=== PATIENT | female | born 1985 | race Caucasian/White ===

== ENCOUNTER 2025-02-02 13:42 | Observation (INO) | payer OTHER ==
[2025-02-02 14:05] VITALS: BP 100/59; PULSE 63; RESP 18; TEMP 97.9
== END 2025-02-02 18:05 | disposition home or self-care (01) ==
LOC: OB 13:42
PROVIDERS: ADMIT Family Medicine; ATTEND Family Medicine
DX: Z34.83 Encounter for supervision of other normal pregnancy, third trimester (principal); Z3A.31 31 weeks gestation of pregnancy

== ENCOUNTER 2025-03-27 04:53 | Inpatient (IN) | payer OTHER ==
[2025-03-27] MEDS: Lactated Ringers 1,000 ML IV ONE (05:00)
[2025-03-27] MEDS ORDERED: Lactated Ringers 1,000 ML IV SCH (05:00)
[2025-03-27 06:05] LABS: Hematocrit 36.4 % (34.1-44.9); Hemoglobin 12.3 g/dL (11.2-15.7); Mean Corpuscular Hemoglobin 29.5 pg (25.6-32.2); Mean Corpuscular Hgb Concent. 33.8 g/dL (32.2-35.5); Platelet Count 196 x10^3/uL (182-369); Red Blood Count 4.17 x10^6/uL (3.93-5.22); White Blood Count 8.0 x10^3/uL (3.98-10.04)
[2025-03-27] MEDS: Reglan 10 MG/2 ML IV SCH (06:07)
[2025-03-27] MEDS: SOD CITRATE-CITRIC ACID SOLN PO SCH (06:07)
[2025-03-27 06:08] LABS: Glucose, Urine Negative (Negative); Protein,Urine Dip Trace (Negative); RBC 0-2 /HPF (0-5); WBC 0-2 /HPF (0-5)
[2025-03-27] MEDS: Pepcid 20 MG VIAL IV SCH (06:08)
[2025-03-27 06:19] LABS: Amphetamine,Urine NEGATIVE (NEGATIVE); Barbiturate,Urine NEGATIVE (NEGATIVE); Benzodiazepine,Urine NEGATIVE (NEGATIVE); Cocaine,Urine NEGATIVE (NEGATIVE); Methadone,Urine NEGATIVE (NEGATIVE); Opiate,Urine NEGATIVE (NEGATIVE); PCP,Urine NEGATIVE (NEGATIVE); THC,Urine NEGATIVE (NEGATIVE)
[2025-03-27 06:20] LABS: INR 0.84 (0.8-3.0); PROTIME 9.3 SECONDS (9.4-12.5); PTT 26.2 SECONDS (25.1-36.5)
[2025-03-27] MEDS: CLINDAMYCIN-D5W 900 MG/50 ML*** 900 MG/50 ML BAG IV SCH (06:38)
[2025-03-27 06:43] LABS: ABO TYPING AB; RH TYPING POSITIVE
[2025-03-27] MEDS ORDERED: Astramorph-Pf 5 MG/10 ML ONE (06:47)
[2025-03-27] MEDS ORDERED: Pitocin 10 UNITS/ML ONE (06:47)
[2025-03-27] MEDS ORDERED: OFIRMEV 100 ML IV ONE (06:52)
[2025-03-27] MEDS ORDERED: EXPAREL 133 MG/10 ML VIAL IJ ONE (06:53)
[2025-03-27] MEDS ORDERED: Marcaine Mpf 0.5% Vial 30 Ml ONE (06:53)
[2025-03-27] MEDS ORDERED: Ephedrine Sulfate 50 MG/ML ONE (07:27)
[2025-03-27] MEDS ORDERED: PHENYLEPHRINE HCL ONE (07:27)
[2025-03-27] MEDS ORDERED: Zofran 4 MG/2 ML VIAL ONE (07:52)
[2025-03-27] MEDS ORDERED: SUBLIMAZE 100 MCG/2 ML ONE (07:58)
[2025-03-27] MEDS ORDERED: MOTRIN 400 MG PO PRN (10:19)
[2025-03-27] MEDS ORDERED: LANSINOH 40 GM TOP PRN (10:19)
[2025-03-27] MEDS ORDERED: TYLENOL EXTRA STRENGTH 500 MG PO PRN (10:19)
[2025-03-27] MEDS ORDERED: Mylicon 80MG PO PRN ×2 (10:19→13:00)
[2025-03-27] MEDS ORDERED: CLARITIN 10 MG PO PRN (10:26)
[2025-03-27] MEDS ORDERED: BENADRYL 50 MG/ML IV PRN ×2 (10:26→13:00)
[2025-03-27] MEDS ORDERED: Nubain 10 MG/ML IV PRN ×2 (10:26→13:00)
[2025-03-27] MEDS ORDERED: MORPHINE SULFATE 2 MG INJ IV PRN ×2 (10:26→13:00)
[2025-03-27] MEDS ORDERED: DEMEROL 50 MG IV PRN ×2 (10:26→13:00)
[2025-03-27] MEDS ORDERED: Dextrose 5%-Lr IV Solution 1000 ML 1,000 ML IV SCH (10:30)
[2025-03-27] MEDS ORDERED: Narcan 0.4 MG/ML IV PRN ×2 (10:30→13:00)
[2025-03-27] MEDS ORDERED: PERCOCET TABLET 5/325MG PO PRN ×2 (10:30→13:00)
[2025-03-27] MEDS ORDERED: Sodium Chloride 0.9% 10 ML FLUSH Syringe IJ PRN ×2 (10:45→13:00)
[2025-03-27] MEDS ORDERED: HOLD NARCOTIC ANALGESICS AND SEDATIVES X24 HR MC PRN (10:45)
[2025-03-27] MEDS ORDERED: Dextrose 5%-Lr IV Solution 1000 ML 1,000 ML IV ONE (12:45)
[2025-03-27] MEDS ORDERED: CLARITIN 10 MG ONE (12:46)
[2025-03-27] MEDS: CLARITIN 10 MG PO PRN (13:11)
[2025-03-27] MEDS: Dextrose 5%-Lr IV Solution 1000 ML 1,000 ML IV SCH (13:11)
[2025-03-27 15:13] LABS: Glucose, Urine Negative (Negative); Protein,Urine Dip Trace (Negative); RBC 0-2 /HPF (0-5)
[2025-03-27] MEDS: Zofran 4 MG/2 ML VIAL IV PRN (17:36)
[2025-03-27] MEDS: LANSINOH 40 GM TOP PRN (17:36)
[2025-03-27] MEDS: Docusate Sodium 100 MG PO SCH (20:25)
[2025-03-27] MEDS: MOTRIN 400 MG PO PRN (20:31)
[2025-03-27] MEDS ORDERED: Docusate Sodium 100 MG PO SCH (22:00)
[2025-03-28] MEDS: TYLENOL EXTRA STRENGTH 500 MG PO PRN (01:01)
[2025-03-28 05:03] LABS: BASOPHIL % 0.3 % (0.1-1.2); Basophil (Absolute #) 0.03 x10^3/uL (0.01-0.08); Eosinophil (Absolute #) 0.18 x10^3/uL (0.04-0.36); Hematocrit 34.6 % (34.1-44.9); Hemoglobin 11.5 g/dL (11.2-15.7); IMMATURE GRAN # 0.05 x10^3u/L (0.001-0.031); IMMATURE GRAN % 0.5 % (0.001-0.429); Lymphocyte (Absolute #) 1.26 x10^3/uL (1.18-3.74); Mean Corpuscular Hemoglobin 29.4 pg (25.6-32.2); Mean Corpuscular Hgb Concent. 33.2 g/dL (32.2-35.5); Monocyte (Absolute #) 1.02 x10^3/uL (0.24-0.86); NUCLEATED RBC # 0.00 x10^3u/L (0.00-0.012); NUCLEATED RBC % 0.0 % (0.00-0.2); Platelet Count 150 x10^3/uL (182-369); Red Blood Count 3.91 x10^6/uL (3.93-5.22); White Blood Count 10.9 x10^3/uL (3.98-10.04)
[2025-03-28 07:50] LABS: RPR Non Reactive (Non Reactive)
[2025-03-28] MEDS ORDERED: FERREX 150 PO SCH (10:00)
[2025-03-28] MEDS ORDERED: HOLD NARCOTIC ANALGESICS AND SEDATIVES X24 HR MC SCH (10:00)
[2025-03-28] MEDS: PATIENT OWN MEDICATION PO SCH (10:25)
--- NOTE | 2025-03-28 10:32 | OP ---
SURGERY DATE/TIME: 03/27/2025 [id number] PREOPERATIVE DIAGNOSES: 1) Term intrauterine . 2) History of prior section. 3) Desire permanent sterilization. POSTOPERATIVE DIAGNOSES: 1) Term intrauterine . 2) History of prior section. 3) Desire permanent sterilization. PROCEDURE: Repeat low transverse section with bilateral tubal ligation. SURGEON: Jayesh Anglin MD. ANESTHESIA: Spinal by Cole Boyd CRNA. QUANTITATIVE BLOOD LOSS: 617 mL. URINE: 50 mL of clear straw-colored urine. INTRAVENOUS: 1200 mL of crystalloid. SPECIMEN: Bilateral fallopian tube segments. DESCRIPTION OF PROCEDURE AND FINDINGS: After informed written consent was obtained, the patient was taken to the operating room. She underwent spinal anesthesia and was prepped and draped in the usual sterile fashion. After adequate level of anesthesia was assessed, a low transverse skin incision was made by knife through the area of prior scar, carried down through the subcutaneous fat to level of fascia. Fascia was nicked on both sides of midline using knife and then extended into horizontal using curved Agudelo scissors. Superior free edge of the fascia was grasped with Iam clamps and the underlying rectus muscles were dissected free. The same was repeated inferiorly. The peritoneal cavity was then opened in blunt fashion, extended into horizontal. Then, a bladder flap was created and reflected over lower uterine segment. Horizontal uterine incision was made by knife and carried down to the level of the amniotic membranes which were carefully artificially ruptured. A viable female infant with a loose nuchal cord x1 was delivered from the vertex presentation with a strong cry immediately upon delivery. Oropharynx and nares were bulb suctioned free, cord was clamped and cut, and she was handed off to the waiting nursery team. Placenta was manually extracted and the uterus was exteriorized. Uterine cavity was sponge curetted clean with lap sponge. Uterine incision was closed with #1 chromic in a running locked fashion. Good closure and good hemostasis were achieved at that level. Next, the right fallopian tube was grasped with a Letyt and then cautery was used to make a window in the mesosalpinx. Then, 0 chromic tie was used to ligate the proximal and distal tube segment ends. Then, the interceding tube segment was dissected free with Metzenbaum scissors. Free edge of the tube was then cauterized with electrocautery on both sides. Same was repeated on the left side with no complications. Posterior cul-de-sac was wiped free of blood and clot and then the uterus was returned to the peritoneal cavity. Lateral gutters were wiped free of blood and clot. There was a small area of oozing in the middle aspect of the uterine closure; therefore, 0 [address] was used to place a [id number] suture which provided good hemostasis. Remainder of the incision was well approximated with good hemostasis. Next, the fascia was closed with 0 Vicryl in a running fashion. Good closure and good hemostasis were achieved at that level. Subcutaneous fat was irrigated with warm sterile saline and, finally, the skin layer was closed with 4-0 undyed Vicryl in a running subcuticular fashion. Steri-Strips and an occlusive dressing were placed over the incision, and the patient was transferred to the recovery room in good condition.
[2025-03-28] MEDS: FERREX 150 PO SCH (11:59)
[2025-03-28] MEDS: SYNTHROID 100 MCG PO SCH (20:21)
[2025-03-29 03:25] VITALS: TEMP 98.7
--- NOTE | 2025-03-29 09:12 | PCM.DS ---
Discharge Summary Date of Admission: 03/27/25 04:53 Admitting Physician: UMER STRINGER Consults: Consults on Case 03/26/25 22:06 Notify Anesthesia Provider ROUTINE 03/27/25 05:00 Notify Physician OF ADMISSION Primary Care Provider: UMER STRINGER Allergies Allergies Penicillins Allergy (Verified 04/30/23 16:33) Rash swelling, rash OB Hospital Summary - Hospital Course Reason for Admission: Section Infant Delivery Method: Repeat Section Other Post Procedures: Tubal Ligation Complications: None OB Discharge Diagnosis: IUP at Term Delivery Baby: Female - Vitals & Intake/Output Vital Signs: Vital Signs Temperature 98.7 F 03/29/25 03:23 Pulse Rate 78 03/29/25 03:23 Respiratory Rate 16 03/29/25 03:23 Blood Pressure 105/64 03/29/25 03:23 O2 Sat by Pulse Oximetry 99 03/29/25 03:23 Intake & Output: Intake & Output 03/26/25 03/27/25 03/28/25 03/29/25 11:59 11:59 11:59 11:59 Intake Total 4775 Output Total 3850 Balance 925 Weight 90.718 kg - Lab Result Diagrams: 03/28/25 05:00 Micro Results-Entire Visit: Microbiology 03/27/25 07:26 Urine Culture - Preliminary Catherized NO GROWTH TO DATE 03/27/25 06:04 Urine Culture - Final Clean Catch Midstream MIXED LUKE; 3 OR MORE TYPES. NO PREDOMINANT ORGANISM. NO FURTHER WORKUP. PLEASE RESUBMIT IF CLINICALLY INDICATED. OB Discharge Exam General Appearance: no apparent distress Neurologic Exam: alert, oriented x 3 Respiratory Exam: normal breath sounds, lungs clear, No respiratory distress Cardiovascular Exam: regular rate/rhythm, normal heart sounds Gastrointestinal/Abdomen Exam: soft, other (optifoam dressing clean, dry, intact) - Discharge Disposition: Home, Self-Care Condition: Stable Prescriptions: Continue Vit No.179/Iron/Folic [ Tablet] 1 each PO DAILY Levothyroxine Sodium 200 mcg PO DAILY Desvenlafaxine [Desvenlafaxine ER] 25 tab PO ZPACK Follow up with: UMER STRINGER MD [Primary Care Provider, [facility]] - 04/05/25 9:45 am
[2025-03-29 09:28] VITALS: BP 119/62; PULSE 67; RESP 20; O2SAT 98
== END 2025-03-29 10:30 | disposition home or self-care (01) | DRG 785 ==
LOC: OBSVTOIN 04:53 → OB 04:53
PROVIDERS: ADMIT Family Medicine; ATTEND Family Medicine
PROC: 10D00Z1 Extraction of Products of Conception, Low, Open Approach (ICD-10-PCS; principal; 2025-03-27)
PROC: 0UT70ZZ Resection of Bilateral Fallopian Tubes, Open Approach (ICD-10-PCS; 2025-03-27)
DX: O34.219 Maternal care for unspecified type scar from previous cesarean delivery (principal); Z30.2 Encounter for sterilization; Z37.0 Single live birth; Z3A.39 39 weeks gestation of pregnancy